=== PATIENT | female | born 1955 | race African-American/Black ===

== ENCOUNTER 2017-01-01 11:03 | Emergency (ER) | payer MEDICARE ==
[~2017-01-01] VITALS: Ht 180.3 cm; Wt 72.6 kg
[~2017-01-01 11:03] MED LIST: ALPR0.25 PO; ONDA4TAB7 PO
--- NOTE | 2017-01-01 12:34 | PHYS DOC ---
Past Medical History Past Medical History: Anxiety, Hypertension Additional Past Medical Histor: CHRONIC BACK PAIN, "NERVE PAIN" Past Surgical History: No Surgical History Alcohol Use: Heavy Drug Use: None Adult General Chief Complaint Chief Complaint: INSECT BITE HPI HPI 61-year-old female presenting to the emergency department today after having a bug bite on her left arm. She has mild itching which is nonradiating intermittent and without alleviating factors. She had an episode of feeling anxious for which EMS was able to calm her down. Currently the patient is feeling 100% better and would like to be discharged. Review of systems was negative for chest pain shortness of breath abdominal pain nausea vomiting fevers or chills. All other review of systems is negative unless otherwise noted in history of present illness. ED course: 61-year-old female presenting with a bug bite her left arm and anxiousness. Vital signs unremarkable other than mild tachycardia likely secondary to anxiety. Chronic hypertension present. Pertinent physical examination shows no wheezing in the lungs. Abdomen is soft and nontender. On examination the patient's left arm the patient has a bug bite on the dorsum of the forearm which is minimally erythematous. No evidence of cellulitis. No other findings on skin examination. The remainder the exam is unremarkable. The patient was subsequently discharged home. Review of Systems Review of Systems SEE ABOVE. Allergies Allergies Allergies Coded Allergies Type Severity Reaction Last Updated Verified Penicillins Allergy Intermediate hives, itch 11/29/14 Yes Physical Exam Physical Exam Constitutional: Well developed, well nourished, no acute distress, non-toxic appearance. [] HENT: Normocephalic, atraumatic, bilateral external ears normal, oropharynx moist, no oral exudates, nose normal. [] Eyes: PERRLA, EOMI, conjunctiva normal, no discharge. [] Neck: Normal range of motion, no tenderness, supple, no stridor. [] Cardiovascular:Heart rate regular rhythm, no murmur [] Lungs & Thorax: Bilateral breath sounds clear to auscultation [] Abdomen: Bowel sounds normal, soft, no tenderness, no masses, no pulsatile masses. [] Skin: Warm, dry, no erythema, no rash. [] Back: No tenderness, no CVA tenderness. [] Extremities: No tenderness, no cyanosis, no clubbing, ROM intact, no edema. [] Neurologic: Alert and oriented X 3, normal motor function, normal sensory function, no focal deficits noted. [] Psychologic: Affect normal, judgement normal, mood normal. [] Current Patient Data Vital Signs Vital Signs Date Time Temp Pulse Resp B/P (MAP) Pulse Ox O2 Delivery O2 Flow Rate FiO2 01/01/17 12:56 90 18 183/108 (133) 98 Room Air 01/01/17 11:12 98.2 98.2 EKG EKG [] Radiology/Procedures Radiology/Procedures [] Course & Med Decision Making Course & Med Decision Making Pertinent Labs and Imaging studies reviewed. (See chart for details) [] Dragon Disclaimer Dragon Disclaimer This electronic medical record was generated, in whole or in part, using a voice recognition dictation system. Departure Departure Impression: Primary Impression: Insect bite Disposition: HOME, SELF-CARE Condition: STABLE Referrals: Henrry HENRY MD (PCP) Patient Instructions: Insect Bite Additional Instructions: Thank you for allowing us to participate in your care today. Followup with your primary care physician in 3 days if your symptoms do not improve. Call your Primary Doctor tomorrow and inform them of your visit today. If you do not have a primary care provider you can ask for a list of our primary care providers. Return to the emergency department you have any new or concerning findings. This should be evaluated by the primary care physician and any necessary consulting services for continued management within a few days after discharge. Return to emergency room if you have any new or concerning symptoms including but not limited to fever, chills, nausea, vomiting, intractable pain, any new rashes, chest pain, shortness of air, uncontrolled bleeding, difficulty breathing, and/or vision loss. KRISSY SHANE MD Jan 01, 2017 12:34
[2017-01-01 12:56] VITALS: BP 183/108
== END 2017-01-01 13:06 | disposition home or self-care (01) ==
LOC: ER 11:03
DX: S40.862A Insect bite (nonvenomous) of left upper arm, initial encounter (principal); F41.9 Anxiety disorder, unspecified; I10 Essential (primary) hypertension; G89.29 Other chronic pain; Z88.0 Allergy status to penicillin; W57.XXXA Bitten or stung by nonvenomous insect and other nonvenomous arthropods, initial encounter; Y93.89 Activity, other specified; Y92.89 Other specified places as the place of occurrence of the external cause; Y99.8 Other external cause status
CPT/HCPCS: 99283

== ENCOUNTER → 2018-09-02 | Outpatient (CLI) | payer OTHER ==
--- NOTE | 2018-09-02 16:33 | KCIC ---
EXAM: AP, lateral and tangential patellar views right knee DATE: 09/02/2018 12:00 AM INDICATION: Right knee pain COMPARISON: No Prior FINDINGS: No evidence of acute fracture or dislocation. Mild medial compartment joint space narrowing with tricompartmental osteophytes. Subtle lucency within the medial femoral condyle may represent subchondral cystic change. Moderate right knee joint effusion. Patellar enthesopathy. Vascular calcifications are seen. IMPRESSION: 1. No evidence of acute fracture or dislocation. 2. Right knee joint osteoarthritis 3. Moderate right knee joint effusion. Electronically signed by: Mikal Evans MD (09/02/2018 4:29 PM) [id number]
== END | disposition home or self-care (01) ==
LOC: KCIC 14:07
PROVIDERS: ATTEND Nurse Practitioner Gerontology
DX: M25.461 Effusion, right knee (principal); M25.761 Osteophyte, right knee; M17.11 Unilateral primary osteoarthritis, right knee; M76.51 Patellar tendinitis, right knee
CPT/HCPCS: 73562

== ENCOUNTER 2018-09-04 16:34 | Emergency (ER) | payer OTHER ==
[~2018-09-04] VITALS: Ht 175.3 cm; Wt 78.5 kg
[2018-09-04] MEDS ORDERED: ONDANSETRON PF 4 MG/2 ML VIAL. IV ONE (16:45)
[2018-09-04] MEDS ORDERED: IV NORMAL SALINE 1000ML BAG 1,000 ML IV ONE (16:45)
[2018-09-04] MEDS ORDERED: MECLIZINE HCL 12.5 MG TABLET. PO ONE (16:45)
[2018-09-04 16:46] VITALS: BP 164/98
--- NOTE | 2018-09-04 17:04 | RAD ---
Portable chest, 09/04/2018: HISTORY: Dizziness The heart size is normal. There is calcific plaquing of the aorta. A dense nodule projected over left parahilar region is most likely a granuloma. No pulmonary infiltrate is seen. There is no evidence of pleural fluid. IMPRESSION: No acute cardiopulmonary abnormality is detected. Electronically signed by: Pancho Tracey MD (09/04/2018 5:02 PM) [facility]
--- NOTE | 2018-09-04 17:11 | PHYS DOC ---
Past Medical History Past Medical History: Anxiety, Hypertension Additional Past Medical Histor: CHRONIC BACK PAIN, "NERVE PAIN" Past Surgical History: No Surgical History Additional Past Surgical Histo: Hernia repair in grade school Additional Information: 8 cigarettes/day Alcohol Use: Occasionally Drug Use: None Adult General Chief Complaint Chief Complaint: WEAKNESS/GENERALIZED HPI HPI Patient is a 63 year old female with a history of anxiety, hypertension, smoking, who presents to the ED today complaining of dizziness and generalized weakness for 3 days. Patient states 3 days ago was seen by the PCP, she states she was switched from Norvasc 10 mg to losartan 100 mg/HCTZ 25 mg. She states for the last 3 days she's felt increasingly dizzy and weak. Symptoms worse when she is getting up and moving. Patient denies any headache, denies any chest pain or shortness of breath. PCP-Anna Decker NP Review of Systems Review of Systems Constitutional: Denies fever or chills [] Eyes: Denies change in visual acuity, redness, or eye pain [] HENT: Denies nasal congestion or sore throat [] Respiratory: Denies cough or shortness of breath [] Cardiovascular: No additional information not addressed in HPI [] GI: Denies abdominal pain, nausea, vomiting, bloody stools or diarrhea [] : Denies dysuria or hematuria [] Musculoskeletal: Denies back pain or joint pain [] Integument: Denies rash or skin lesions [] Neurologic: Reports dizziness. Reports generalized weakness. Denies headache, sensory changes [] All other systems were reviewed and found to be within normal limits, except as documented in this note. Current Medications Current Medications Current Medications Medications (Trade) Dose Ordered Sig/[place] Start Time Stop Time Status Last Admin Dose Admin Alprazolam (Xanax) 0.5 mg 1X ONCE 09/04/18 17:15 09/04/18 17:57 DC Lorazepam (Ativan) 0.25 mg 1X ONCE 09/04/18 18:00 09/04/18 18:01 DC 09/04/18 18:18 0.25 MG Meclizine HCl (Antivert) 25 mg 1X ONCE 09/04/18 16:45 09/04/18 16:49 DC 09/04/18 17:32 25 MG Ondansetron HCl (Zofran) 4 mg 1X ONCE 09/04/18 16:45 09/04/18 16:49 DC 09/04/18 17:40 4 MG Sodium Chloride 1,000 ml @ 1,000 mls/hr 1X ONCE 09/04/18 16:45 09/04/18 17:44 DC 09/04/18 17:29 1,000 MLS/HR Allergies Allergies Allergies Coded Allergies Type Severity Reaction Last Updated Verified Penicillins Allergy Intermediate hives, itch 11/29/14 Yes Physical Exam Physical Exam Constitutional: Well developed, well nourished, no acute distress, non-toxic appearance. [] HENT: Normocephalic, atraumatic, bilateral external ears normal, oropharynx moist, no oral exudates, nose normal. [] Eyes: PERRLA, EOMI, conjunctiva normal, no discharge. [] Neck: Normal range of motion, no tenderness, supple, no stridor. [] Cardiovascular:Heart rate regular rhythm, no murmur [] Lungs & Thorax: Bilateral breath sounds clear to auscultation [] Abdomen: Bowel sounds normal, soft, no tenderness, no masses, no pulsatile masses. [] Skin: Warm, dry, no erythema, no rash. [] Back: No tenderness, no CVA tenderness. [] Extremities: No tenderness, no cyanosis, no clubbing, ROM intact, no edema. [] Neurologic: Alert and oriented X 3, normal motor function, normal sensory function, no focal deficits noted. Cranial nerves II through XII intact. Psychologic: Affect normal, judgement normal, mood normal. [] Current Patient Data Vital Signs Vital Signs Date Time Temp Pulse Resp B/P (MAP) Pulse Ox O2 Delivery O2 Flow Rate FiO2 09/04/18 16:46 98.1 98 18 164/98 (120) 96 Room Air 98.1 Lab Values Laboratory Tests Test 09/04/18 17:01 09/04/18 17:52 09/04/18 18:25 09/04/18 18:55 Glucose (Fingerstick) 102 mg/dL (70-99) H Prothrombin Time 12.4 SEC (11.7-14.0) Prothrombin Time INR 1.0 (0.8-1.1) Sodium Level 138 mmol/L (136-145) Potassium Level 3.4 mmol/L (3.5-5.1) L Chloride Level 101 mmol/L (98-107) Carbon Dioxide Level 23 mmol/L (21-32) Anion Gap 14 (6-14) Blood Urea Nitrogen 19 mg/dL (7-20) Creatinine 0.8 mg/dL (0.6-1.0) Estimated GFR (Cockcroft-Gault) 87.9 BUN/Creatinine Ratio 24 (6-20) H Glucose Level 107 mg/dL (70-99) H Calcium Level 9.4 mg/dL (8.5-10.1) Magnesium Level 2.1 mg/dL (1.8-2.4) Total Bilirubin 0.5 mg/dL (0.2-1.0) Aspartate Amino Transferase (AST) 24 U/L (15-37) Alanine Aminotransferase (ALT) 25 U/L (14-59) Alkaline Phosphatase 83 U/L (46-116) Creatine Kinase 109 U/L (26-192) Creatine Kinase MB (Mass) 0.7 ng/mL (0.0-3.6) Creatine Kinase MB Relative Index 0.6 % (0-4) Troponin I Quantitative < 0.017 ng/mL (0.000-0.055) WY-Sgi-E-Type Natriuretic Peptide 142 pg/mL (0-124) H Total Protein 7.2 g/dL (6.4-8.2) Albumin 3.7 g/dL (3.4-5.0) Albumin/Globulin Ratio 1.1 (1.0-1.7) Lipase 71 U/L (73-393) L Thyroid Stimulating Hormone (TSH) 1.061 uIU/mL (0.358-3.74) Urine Collection Type Unknown Urine Color Yellow Urine Clarity Clear Urine pH 5.5 Urine Specific [place] 1.015 Urine Protein Negative mg/dL (NEG-TRACE) Urine Glucose (UA) Negative mg/dL (NEG) Urine Ketones (Stick) Negative mg/dL (NEG) Urine Blood Negative (NEG) Urine Nitrite Negative (NEG) Urine Bilirubin Negative (NEG) Urine Urobilinogen Dipstick 0.2 mg/dL (0.2 mg/dL) Urine Leukocyte Esterase Negative (NEG) Urine RBC 0 /HPF (0-2) Urine WBC 0 /HPF (0-4) Urine Squamous Epithelial Cells Few /LPF Urine Bacteria Few /HPF (0-FEW) Urine Opiates Screen Neg (NEG) Urine Methadone Screen Neg (NEG) Urine Barbiturates Neg (NEG) Urine Phencyclidine Screen Neg (NEG) Urine Amphetamine/Methamphetamine Neg (NEG) Urine Benzodiazepines Screen Neg (NEG) Urine Cocaine Screen Neg (NEG) Urine Cannabinoids Screen Neg (NEG) Urine Ethyl Alcohol Neg (NEG) White Blood Count 6.5 x10^3/uL (4.0-11.0) Red Blood Count 4.33 x10^6/uL (3.50-5.40) Hemoglobin 14.3 g/dL (12.0-15.5) Hematocrit 43.0 % (36.0-47.0) Mean Corpuscular Volume 99 fL (79-100) Mean Corpuscular Hemoglobin 33 pg (25-35) Mean Corpuscular Hemoglobin Concent 33 g/dL (31-37) Red Cell Distribution Width 15.0 % (11.5-14.5) H Platelet Count 169 x10^3/uL (140-400) Neutrophils (%) (Auto) 60 % (31-73) Lymphocytes (%) (Auto) 31 % (24-48) Monocytes (%) (Auto) 8 % (0-9) Eosinophils (%) (Auto) 0 % (0-3) Basophils (%) (Auto) 0 % (0-3) Neutrophils # (Auto) 3.9 x10^3uL (1.8-7.7) Lymphocytes # (Auto) 2.0 x10^3/uL (1.0-4.8) Monocytes # (Auto) 0.5 x10^3/uL (0.0-1.1) Eosinophils # (Auto) 0.0 x10^3/uL (0.0-0.7) Basophils # (Auto) 0.0 x10^3/uL (0.0-0.2) Laboratory Tests 09/04/18 18:55 Laboratory Tests 09/04/18 17:52 EKG EKG 16:[address] Boggs normal sinus rhythm HR 100 no STEMI Radiology/Procedures Radiology/Procedures []PROCEDURE: PORTABLE CHEST 1V Portable chest, 09/04/2018: HISTORY: Dizziness The heart size is normal. There is calcific plaquing of the aorta. A dense nodule projected over left parahilar region is most likely a granuloma. No pulmonary infiltrate is seen. There is no evidence of pleural fluid. IMPRESSION: No acute cardiopulmonary abnormality is detected. Electronically signed by: Pancho Tracey MD (09/04/2018 5:02 PM) [facility] DICTATED and SIGNED BY: PANCHO TRACEY MD DATE: 09/04/18 170 PROCEDURE: CT HEAD WO CONTRAST ADDENDUM PQRS Compliance Statement: One or more of the following individualized dose reduction techniques were utilized for this examination: 1. Automated exposure control 2. Adjustment of the mA and/or kV according to patient size 3. Use of iterative reconstruction technique Electronically signed by: Stephen Valdez MD (09/04/2018 7:41 PM) [facility] DICTATED AND SIGNED BY: STEPHEN VALDEZ MD DATE: 09/04/18 194 CC: Henrry HENRY MD; SHANTELL TUCKER APRN ~ CT brain without contrast. HISTORY: Dizziness CT scan of brain was done without contrast. Comparison is made to study from January 2015. There is no intracranial hemorrhage or subdural hematoma. Ventricles are normal in size. There is no mass or shift of the midline. An acute CVA is not identified. Sinuses are clear. IMPRESSION: 1. No intracranial hemorrhage or acute finding noted. Electronically signed by: Stephen Valdez MD (09/04/2018 5:28 PM) [facility] DICTATED and SIGNED BY: STEPHEN VALDEZ MD DATE: 09/04/18 1728 Course & Med Decision Making Course & Med Decision Making Pertinent Labs and Imaging studies reviewed. (See chart for details) This is a 63-year-old female patient who presents to the ED today complaining of dizziness and generalized weakness that began 3 days after she was switched from Norvasc 10 mg to losartan 100 mg/HCTZ 25 mg 3 days ago. Patient arrived in the ED with a temperature of 98.1, heart rate 98, blood pressure 164/98 O2 sats 96% on room air CT of the head is negative for any acute findings, chest x-ray is negative. Patient was given meclizine, liter of fluid. She is up ambulating, has no s ymptoms. She requested Ativan which she takes chronically for anxiety. A dose was given in the ED. She states all her symptoms are gone, she is up ambulating in no distress when I went to see her in the room. She is requesting to be discharged stating tomorrow she has to go to work. 2000 orthostatics supine- blood pressure 131/94 with a heart rate of 87, sitting blood pressure 154/87, heart rate 84, standing blood pressure 140/89 heart rate 93 I requested her not to take this new blood pressure medication considering the side effects to her. I requested she contacts her doctor on Friday and they can switch her to something else for her blood pressure. She was discharged to home. Patient was encouraged to consider smoking cessation. Dragon Disclaimer Dragon Disclaimer This electronic medical record was generated, in whole or in part, using a voice recognition dictation system. Departure Departure Impression: Primary Impression: Adverse drug reaction Additional Impression: Dizziness Disposition: HOME, SELF-CARE Condition: STABLE Referrals: Henrry HENRY MD (PCP) Call Anna Decker NP on Friday and let her know your symptoms from the medication she put you on. Patient Instructions: Dizziness, [id number] Additional Instructions: You were evaluated in the emergency room for dizziness and weakness, we highly suspect your new blood pressure medications could be causing you your current symptoms. Please do not take this new medicine. Contact your doctor on Friday and let to DrDonaldknow your symptoms after taking the new medication. Please come back to the ED at any point symptoms worsen. Problem Qualifiers Primary Impression: Adverse drug reaction Encounter type: initial encounter Qualified Codes: T50.905A - Adverse effect of unspecified drugs, medicaments and biological substances, initial encounter SHANTELL TUCKER APRN September 04, 2018 17:10
--- NOTE | 2018-09-04 17:30 | RAD ---
CT brain without contrast. HISTORY: Dizziness CT scan of brain was done without contrast. Comparison is made to study from January 2015. There is no intracranial hemorrhage or subdural hematoma. Ventricles are normal in size. There is no mass or shift of the midline. An acute CVA is not identified. Sinuses are clear. IMPRESSION: 1. No intracranial hemorrhage or acute finding noted. Electronically signed by: Stephen Valdez MD (09/04/2018 5:28 PM) [facility]
[2018-09-04] MEDS: ALPRAZolam 0.5 MG TABLET PO ONE ×2 (17:48→17:52)
[2018-09-04] MEDS ORDERED: LORazepam 0.5 MG TABLET PO ONE (18:00)
[2018-09-04 18:18] LABS: CALCIUM 9.4 mg/dL (8.5-10.1); CREATININE 0.8 mg/dL (0.6-1.0); GFR 87.9; POTASSIUM 3.4 mmol/L (3.5-5.1)
[2018-09-04 18:21] LABS: PROTHROMBIN TIME PATIENT 12.4 SEC (11.7-14.0)
[2018-09-04 18:25] LABS: ALBUMIN 3.7 g/dL (3.4-5.0); ALBUMIN/GLOBULIN RATIO 1.1 (1.0-1.7); MAGNESIUM 2.1 mg/dL (1.8-2.4); TOTAL BILIRUBIN 0.5 mg/dL (0.2-1.0); TOTAL PROTEIN 7.2 g/dL (6.4-8.2)
[2018-09-04 18:42] LABS: BILIRUBIN,URINE NEGATIVE (NEG); CLARITY,URINE CLEAR; COLOR,URINE YELLOW; NITRITE,URINE NEGATIVE (NEG); PH,URINE 5.5; PROTEIN,URINE NEGATIVE (NEG-TRACE); UROBILINOGEN,URINE 0.2 mg/dL (0.2 mg/dL)
[2018-09-04 18:50] LABS: BARBITURATES NEG (NEG); BENZODIAZEPINES NEG (NEG); CANNABINOIDS NEG (NEG); COCAINE NEG (NEG); METHADONE NEG (NEG); OPIATES NEG (NEG); PHENCYCLIDINE NEG (NEG)
[2018-09-04 18:53] LABS: AMPHETAMINE/METHAMPHETAMINE NEG (NEG); BACTERIA,URINE FEW /HPF (0-FEW); RBC,URINE 0 /HPF (0-2); SQUAMOUS EPITHELIAL CELL,UR FEW /LPF; WBC,URINE 0 /HPF (0-4)
[2018-09-04 19:07] LABS: BASO % 0 % (0-3); EOS % 0 % (0-3); HEMOGLOBIN 14.3 g/dL (12.0-15.5); LYMPH % 31 % (24-48); MEAN CORPUSCULAR HEMOGLOBIN 33 pg (25-35); MEAN CORPUSCULAR HGB CONC 33 g/dL (31-37); MEAN CORPUSCULAR VOLUME 99 fL (79-100); MONO # 0.5 x10^3/uL (0.0-1.1); MONO % 8 % (0-9); NEUT # 3.9 x10^3uL (1.8-7.7); NEUT % 60 % (31-73); PLATELET COUNT 169 x10^3/uL (140-400); RED BLOOD COUNT 4.33 x10^6/uL (3.50-5.40); WHITE BLOOD COUNT 6.5 x10^3/uL (4.0-11.0)
--- NOTE | 2018-09-06 15:47 | EKG ---
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
== END 2018-09-04 20:05 | disposition home or self-care (01) ==
LOC: ER 16:34
DX: R42 Dizziness and giddiness (principal); T46.1X5A Adverse effect of calcium-channel blockers, initial encounter; T46.5X5A Adverse effect of other antihypertensive drugs, initial encounter; T50.2X5A Adverse effect of carbonic-anhydrase inhibitors, benzothiadiazides and other diuretics, initial encounter; I10 Essential (primary) hypertension; G89.29 Other chronic pain; F41.9 Anxiety disorder, unspecified; F17.210 Nicotine dependence, cigarettes, uncomplicated; Z88.0 Allergy status to penicillin; Y92.89 Other specified places as the place of occurrence of the external cause
CPT/HCPCS: 36415; 70450; 71045; 80053; 80307; 81001; 82553; 82962; 83690; 83735; 83880; 84443; 84484; 85025; 85610; 93005; 96361; 96374; 99285; J2405; J7030; J8597

== ENCOUNTER → 2018-09-11 | Outpatient (CLI) | payer OTHER ==
[2018-09-04 16:46] VITALS: BP 164/98
--- NOTE | 2018-09-11 12:30 | RAD ---
Right lower extremity venous Doppler dated 09/11/2018. No comparison available. CLINICAL INDICATION: Right leg pain and swelling. FINDINGS: Grayscale, color-flow and spectral waveform analysis was performed to include the deep venous system of the right lower extremity. There is normal compressibility, phasicity and augmentation of flow throughout. No filling defects are seen. Small complex popliteal cyst measuring 3.9 cm craniocaudal. IMPRESSION: 1. No evidence of right lower extremity deep vein thrombosis. 2. Small complex popliteal cyst. Electronically signed by: Jason Jones MD (09/11/2018 12:27 PM) [id number]
== END | disposition home or self-care (01) ==
LOC: US 10:58
PROVIDERS: ATTEND Family Medicine
DX: M71.21 Synovial cyst of popliteal space [Baker], right knee (principal)
CPT/HCPCS: 93971

== ENCOUNTER → 2018-12-18 | Outpatient (CLI) | payer OTHER ==
[2018-12-18 15:11] LABS: BF CLARITY HAZY; BF COLOR YELLOW; BF MON % 80 %; BF PMN % 20 %; BF RBC COUNT 1350 /cmm (Not Established); BF SOURCE SYNOVIAL; BF WBC COUNT 100 /cmm (Not Established)
== END | disposition home or self-care (01) ==
LOC: SPEC 12:19
PROVIDERS: ATTEND Orthopaedic Surgery Sports Medicine
DX: M25.561 Pain in right knee (principal)
CPT/HCPCS: 36415; 87071; 87075; 89050; 89060